=== PATIENT | male | born 1970 | race Caucasian/White ===

== ENCOUNTER → 2020-07-23 | Outpatient (CLI) | payer SELFPAY ==
[~2020-07-23] MED LIST: CEPH500C PO; TRM50T PO
--- NOTE | 2020-07-24 08:00 | NUR ---
Notified patient of his positive COVID test.
== END ==
LOC: LABNPT 08:45
PROVIDERS: ATTEND Family Medicine
DX: U07.1 COVID-19 (principal)
CPT/HCPCS: 87635

== ENCOUNTER 2021-11-24 12:05 | Outpatient (CLI) | payer BC ==
[~2021-11-24] VITALS: Ht 182.9 cm; Wt 86.2 kg
== END 2021-11-24 12:49 ==
LOC: PREOP 12:05
PROVIDERS: ATTEND Surgery
DX: Z01.818 Encounter for other preprocedural examination (principal)

== ENCOUNTER → 2021-12-02 | Day surgery (SDC) | payer BC ==
[~2021-12-02] VITALS: Ht 182 cm; Wt 86.2 kg
[~2021-12-02] MED LIST changes: +LACTATED RINGERS 1,000 ML IV STA; +LIDOCAINE JELLY 2% 6 ML SYRINGE MM PRN; +MIDAZOLAM 2 MG/2 ML (VERSED) VIAL ONE; +ONDANSETRON 4 MG (ZOFRAN) ORAL DISSOLVE TAB PO PRN; +ONDANSETRON 4 MG/2 ML (SDV) Z0FRAN IVP PRN; +PROPOFOL INJECTION 50 ML IV ONE; +proPOfol 200 MG/20 ML (DIPRIVAN) VIAL IV ONE
[2021-12-02 09:05] VITALS: BP 146/81
--- NOTE | 2021-12-02 09:55 | Discharge Inst-Surgical ---
D/C Lap Instructions-KISHORE Follow Up Activity as tolerated High Fiber Diet 25g or more per day Avoid Alcohol, Caffeine, Spicy Larson and Acid foods. Drink 64 fluid oz or more of fluids per day. Symptoms to Report: Fever over 101 degree F, Nausea/Vomiting If any problems/questions: Contact your physician or go to Emergency Room SAL NOVAK MD Dec 02, 2021 09:55
--- NOTE | 2021-12-02 09:55 | Progress Note-Pre Operative ---
Pre-Operative Progress Note H&P Reviewed The H&P was reviewed, patient examined and no changes noted. Date Seen by Provider: Dec 02, 2021 Time Seen by Provider: :30 Date H&P Reviewed: Dec 02, 2021 Time H&P Reviewed: :30 Pre-Operative Diagnosis: screening SAL Topete MD Dec 02, 2021 09:55
[2021-12-02 11:35] VITALS: BP 102/62
[2021-12-02 11:40] VITALS: BP 97/60
--- NOTE | 2021-12-02 11:44 | Progress Note-Post Operative ---
Post-Operative Progess Note Surgeon (s)/Audiovisual Technician (s) Surgeon SAL NOVAK MD Audiovisual Technician: none Pre-Operative Diagnosis screening colo Post-Operative Diagnosis mild chronic stage 2 ext and int hemorrhoids. Procedure & Operative Findings Date of Procedure 12/02/21 Procedure Performed/Findings colonoscopy Anesthesia Type mac Estimated Blood Loss Estimated blood loss (mL): minimal Specimens/Packing Specimens Removed none SAL NOVAK MD Dec 02, 2021 11:44
[2021-12-02 11:45] VITALS: BP 95/63
[2021-12-02 11:50] VITALS: BP 102/64
[2021-12-02 12:05] VITALS: BP 121/90
--- NOTE | 2021-12-02 14:32 | Anesthesia-General Post-Op ---
MAC Patient Condition Mental Status/LOC: Same as Preop Cardiovascular: Satisfactory Nausea/Vomiting: Absent Respiratory: Satisfactory Pain: Controlled Complications: Absent Post Op Complications Complications None Follow Up Care/Instructions Patient Instructions None needed. Anesthesiology Discharge Order Discharge Order Patient is doing well, no complaints, stable vital signs, no apparent adverse anesthesia problems. No complications reported per nursing. WON CABRAL CRNA Dec 02, 2021 14:32
--- NOTE | 2021-12-02 15:58 | OPERATIVE REPORT ---
DATE OF SERVICE: 12/02/2021 ATTENDING PRIMARY CARE PHYSICIAN: Prakash Ritchie DO. PREOPERATIVE DIAGNOSIS: Screening colonoscopy. POSTOPERATIVE DIAGNOSES: Mild chronic stage II external and internal hemorrhoids. PROCEDURE PERFORMED: Colonoscopy. SURGEON: Sal Novak MD ANESTHESIA: Monitored anesthesia care. ESTIMATED BLOOD LOSS: Minimal. FINDINGS: Mild chronic stage II external and internal hemorrhoids. DISPOSITION: The patient tolerated the procedure well. INDICATIONS FOR PROCEDURE: The patient is a 51-year-old male in need of a screening colonoscopy. He has not had a colonoscopy up to this point in his life. He states that he is otherwise doing well, does not report any major issues with diarrhea nor constipation as well as no red blood per rectum nor any dark tarry stools. He also does not report any family history of colon cancer. DESCRIPTION OF PROCEDURE: The patient was brought to the endoscopy suite and laid in the left lateral decubitus position. After adequate IV pain and sedative medications and monitored anesthesia care, a digital rectal examination was performed. Mild chronic stage II external and internal hemorrhoids were identified, which were not actively edematous nor inflamed and no bleeding. Normal sphincter tone was felt and there were no palpable masses. Prostate gland was palpable and appeared normal. The endoscope was then intubated and anus and rectum gently insufflated. The endoscope was then advanced through the valves of Damon of the rectum with no polyps or any neoplasms identified. Through the sigmoid colon, no diverticulosis identified. The endoscope was then advanced through the remainder of the descending, transverse and ascending colon to the cecum, which were normal. There were no polyps or any neoplasms identified throughout the colon or rectum. The endoscope was then slowly withdrawn while taking a second look and suctioning of residual air with no additional findings. The patient tolerated the procedure well. We will recommend continued medical management with a high fiber diet with at least 30 grams of fiber daily as well as significant amounts of water to promote soft stools on a daily basis and if he is asymptomatic, he does not need another colonoscopy for another 10 years. Job ID: [id number] DocumentID: [id number] Dictated Date: 12/02/2021 11:39:28 Loan Secretary Date: 12/02/2021 15:57:26 Dictated By: SAL NOVAK MD
== END ==
LOC: ENDO 08:53
PROVIDERS: ATTEND Surgery
DX: Z12.11 Encounter for screening for malignant neoplasm of colon (principal); K64.1 Second degree hemorrhoids; K64.4 Residual hemorrhoidal skin tags

== ENCOUNTER 2023-05-25 06:37 | Day surgery (SDC) | payer BC ==
--- NOTE | 2023-05-16 09:16 | HISTORY AND PHYSICAL ---
This will be for outpatient surgery on 05/25/2023 for left shoulder arthroscopy with distal clavicle excision and biceps tenotomy, open rotator cuff repair. HISTORY OF PRESENT ILLNESS: The patient is a 52-year-old right hand dominant gentleman with several-month history of progressively worsening left shoulder pain with associated popping. He reports pain with overhead activities and with lifting to the side. He reports pain over his collarbone. An MRI revealed partial thickness rotator cuff tearing with degenerative changes of the acromioclavicular joint and bicipital tendinosis. He has failed to respond to conservative measures including activity modifications, therapy and injections. Because of this, the patient has elected to proceed with surgical intervention. REVIEW OF SYSTEMS: No chest pain. No shortness of breath. No dysuria. PAST SURGICAL HISTORY: None. PAST MEDICAL HISTORY: Denies. FAMILY HISTORY: Unknown. PRIMARY CARE PROVIDER: Dr. Baugh. MEDICATIONS: None. ALLERGIES: NONE. SOCIAL HISTORY: The patient denies alcohol or tobacco use. PHYSICAL EXAMINATION: GENERAL: The patient is well-developed, well-nourished, in no acute distress. HEENT: Normocephalic, atraumatic. Pupils are equal, round, reactive to light. Oropharynx is clear. NECK: Supple. No lymphadenopathy. LUNGS: Clear to auscultation bilaterally. HEART: Regular rate and rhythm. ABDOMEN: Soft, nontender, nondistended. EXTREMITIES: The left shoulder demonstrates tenderness on his acromioclavicular joint. Active range of motion is 160 degrees of forward elevation, 60 degrees of external rotation and internal rotation to L3. He has a positive Neer sign. Pain with cross body adduction. Mildly positive Speed's maneuver. Mildly positive Evangeline's maneuver. IMPRESSION: Left shoulder rotator cuff tendinosis with bicipital tendinosis and acromioclavicular arthrosis. PLAN: Left shoulder arthroscopy, biceps tenotomy versus tenodesis with distal clavicle excision, possible rotator cuff repair. The risks, benefits, options, ramifications and recovery have been discussed at length with the patient. He understands and wishes to proceed. Job ID: [id number] DocumentID: [id number] Dictated Date: 05/09/2023 12:49:09 Repairing Calibrator Date: 05/09/2023 18:46:00 Dictated By: BERNADETTE CARRINGTON MD
[~2023-05-25] VITALS: Ht 180.3 cm; Wt 84.1 kg
[2023-05-25] VITALS (11 sets, daily range): BP systolic 124–150; BP diastolic 74–93
[~2023-05-25 06:37] MED LIST changes: -LACTATED RINGERS 1,000 ML IV STA; -LIDOCAINE JELLY 2% 6 ML SYRINGE MM PRN; -MIDAZOLAM 2 MG/2 ML (VERSED) VIAL ONE; -ONDANSETRON 4 MG (ZOFRAN) ORAL DISSOLVE TAB PO PRN; -ONDANSETRON 4 MG/2 ML (SDV) Z0FRAN IVP PRN; -PROPOFOL INJECTION 50 ML IV ONE; -proPOfol 200 MG/20 ML (DIPRIVAN) VIAL IV ONE
[2023-05-25] MEDS ORDERED: dexAMETHasone INJ 10 MG/ML 1 ML VIAL ONE (06:58)
[2023-05-25] MEDS ORDERED: LIDOCAINE PF 2% 5 ML VIAL ONE (06:58)
[2023-05-25] MEDS ORDERED: fentaNYL INJECTION 100 MCG/2 ML VIAL ONE (06:58)
[2023-05-25] MEDS ORDERED: MIDAZOLAM INJ 2 MG/2 ML VIAL ONE (06:58)
[2023-05-25] MEDS ORDERED: ONDANSETRON INJECTION 4 MG/2 ML (SDV) ONE (06:58)
[2023-05-25] MEDS ORDERED: ROCURONIUM 50 MG/5 ML VIAL IV ONE (06:58)
[2023-05-25] MEDS ORDERED: SEVOFLURANE (ULTANE) 15 ML INHAL SOLN ONE ×2 (06:58→09:55)
[2023-05-25] MEDS ORDERED: proPOfol INJECTION 200 MG/20 ML VIAL IV ONE (06:58)
[2023-05-25] MEDS ORDERED: oxyCODONE/ACETAMINOPHEN 5/325MG TABLET PO PRN (07:30)
[2023-05-25] MEDS ORDERED: NS (IVPB) 50 ML 50 ML ONE (07:32)
[2023-05-25] MEDS ORDERED: ceFAZolin INJECTION 1,000 MG ONE (07:32)
--- NOTE | 2023-05-25 07:34 | Progress Note-Pre Operative ---
Pre-Operative Progress Note Date of Available H&P: May 16, 2023 Date H&P Reviewed: May 25, 2023 Time H&P Reviewed: 07:11 Changes from last HP none Pre-Operative Diagnosis: left shoulder AC osteoarthritis and SLAP tear BERNADETTE CARRINGTON MD May 25, 2023 07:34
--- NOTE | 2023-05-25 07:35 | Progress Note-Post Operative ---
Post-Operative Progess Note Surgeon (s)/Frame Stripper (s) Surgeon BERNADETTE CARRINGTON MD Frame Stripper: Hardy Cobb Pre-Operative Diagnosis left shoulder AC osteoarthritis and SLAP tear Post-Operative Diagnosis left shoulder AC osteoarthritis and SLAP tear Procedure & Operative Findings Date of Procedure 05/25/23 Procedure Performed/Findings left shoulder arthroscopic distal clavicle excision, acromioplasty and biceps tenodesis Anesthesia Type GETA Estimated Blood Loss Estimated blood loss (mL): minimal Specimens/Packing Specimens Removed none Packing: none BERNADETTE CARRINGTON MD May 25, 2023 07:35
[2023-05-25] MEDS ORDERED: BUPIVACAINE 0.25% 30 ML VIAL ONE (07:40)
[2023-05-25] MEDS ORDERED: morphine PRESERVATIVE free 10 MG/10 ML AMP ONE (07:40)
[2023-05-25] MEDS: LACTATED RINGERS 1,000 ML 1,000 ML IV PRN ×2 (07:48→09:30)
[2023-05-25] MEDS ORDERED: ceFAZolin INJECTION 2,000 MG in NS (IVPB) 50 ML 50 ML IV ONE (08:00)
[2023-05-25] MEDS ORDERED: HYDROmorphone INJECTION 2 MG/ML VIAL ONE (09:16)
[2023-05-25] MEDS ORDERED: PHENYLEPHRINE 100 MCG/ML 10 ML (ANESTHESIA) SYR ONE (09:19)
[2023-05-25] MEDS ORDERED: SUGAMMADEX INJ 100 MG/ML 5 ML VIAL IV ONE (09:37)
[2023-05-25] MEDS ORDERED: KETOROLAC INJ 30 MG/ML VIAL ONE (09:51)
[2023-05-25] MEDS ORDERED: ceFAZolin 1 GM/NS 50 ML (SDC/OR ONLY) IV ONE ×2 (10:00)
--- NOTE | 2023-05-25 10:23 | Anesthesia-General Post-Op ---
General Patient Condition Mental Status/LOC: Same as Preop Cardiovascular: Satisfactory Nausea/Vomiting: Absent Respiratory: Satisfactory Pain: Controlled Complications: Absent Post Op Complications Complications None Follow Up Care/Instructions Patient Instructions None needed. Anesthesia/Patient Condition Patient Condition Patient is doing well, no complaints, stable vital signs, no apparent adverse anesthesia problems. No complications reported per nursing. D/C home per [facility] Criteria: Yes PEDRO BRISCOE CRNA May 25, 2023 10:23
[2023-05-25] MEDS ORDERED: HYDROmorphone INJECTION 2 MG/ML VIAL IV ONE (10:30)
[2023-05-25] MEDS: ONDANSETRON INJECTION 4 MG/2 ML (SDV) IVP PRN ×3 (11:17→12:27)
--- NOTE | 2023-05-25 18:05 | OPERATIVE REPORT ---
DATE OF SERVICE: 05/25/2023 PREOPERATIVE DIAGNOSES: 1. Left shoulder SLAP tear. 2. Left shoulder acromioclavicular osteoarthritis. POSTOPERATIVE DIAGNOSES: 1. Left shoulder SLAP tear. 2. Left shoulder acromioclavicular osteoarthritis. PROCEDURES: 1. Left shoulder biceps tenodesis. 2. Left shoulder arthroscopic distal clavicle excision. 3. Left shoulder arthroscopic acromioplasty. SURGEON: Albert Carrington MD DEPUTY HEAD: Hardy Cobb, who assisted throughout the procedure and closed the incisions. ANESTHESIA: General endotracheal by Reno Grigsby CRNA. ESTIMATED BLOOD LOSS: Minimal. DRAINS: None. COMPLICATIONS: None. POSTOPERATIVE PLAN: Sling wear and passive range of motion for 2 weeks and then progressive activities as symptoms allow. The patient was transferred to the recovery room awake and in stable condition. STATEMENT OF MEDICAL NECESSITY: The patient is a 52-year-old active gentleman with complaints of left shoulder pain, popping, catching. An MRI revealed a SLAP tear with partial thickness rotator cuff tearing and a large distal clavicle osteophyte. He tried rest, activity modifications and anti-inflammatories without relief. Due to functional impairment and failure to improve with conservative measures, the patient elected to proceed with surgical intervention. Examination under anesthesia revealed forward elevation 170 degrees, external rotation 80 degrees, internal rotation of 70 degrees. Arthroscopic findings demonstrated a type 2 SLAP tear. The rotator cuff was intact throughout with no intraarticular detachment noted. No glenoid or humeral head articular wear was noted. The remainder of the labrum was intact. The subacromial space demonstrated dense bursitis with sloping of the anterolateral acromion and prominence of the distal clavicle at the acromioclavicular joint. DESCRIPTION OF PROCEDURE: After risks and benefits of the procedure were discussed and questions were answered and informed consent signed and placed on chart, the operative site was confirmed in the preoperative holding area initialed by surgeon. The patient was then transferred to the operating room. After adequate levels of general endotracheal anesthetic were obtained, a timeout was called, confirming the operative site. Examination under anesthesia was performed with the above findings noted. The left shoulder and upper extremity were prepped and draped in the usual sterile fashion. The shoulder joint was injected with 20 mL fluid and standard posterior portal was placed. Under direct visualization, anterior portal was created in the interval between biceps, subscapularis and glenoid. The biceps anchor was released. The stump was debrided with a shaver. The scope was then redirected into the subacromial space. A lateral portal was created. Bursectomy was performed and acromion was planed to a flat type 1 acromion. A superior anterior portal was then placed and under direct visualization through the lateral portal visualization, the distal clavicle was excised from posterior to anterior and from inferior to superior. This removed approximately 8 mm of the distal clavicle. The scope was then redirected through the anterior portal to confirm adequate decompression. The wound was copiously irrigated and the port sites were closed with 4-0 nylon in simple interrupted fashion. An incision was then made just distal to the pectoralis insertion on the upper medial arm. The underlying soft tissues were carefully dissected. Long head of the biceps was identified and pulled into the wound. This was then whipstitched from the musculotendinous junction approximately 3 cm. A unicortical drill hole was then placed in the bicipital groove just distal to pectoralis insertion. These sutures were passed through the biceps button. The button was then passed into the humeral canal. The button flipped and this pulled the tendon down to the bony surface. This was then oversewn on itself. The shoulder and elbow were taken through range of motion and the repair was stable. The wound was copiously irrigated, 3-0 Vicryl was used to reapproximate subcutaneous tissue. Skin was closed with 4-0 nylon in a running alternating horizontal mattress fashion. The incisions were infiltrated with plain Marcaine. The shoulder joint was injected with Duramorph. A soft dressing and sling were applied and the patient was transferred to recovery room awake and stable condition. Job ID: [id number] DocumentID: [id number] Dictated Date: 05/25/2023 10:17:55 Data Conversion Developer Date: 05/25/2023 18:03:00 Dictated By: ALBERT CARRINGTON MD
== END 2023-05-25 13:05 ==
LOC: SDC 06:37
PROVIDERS: ATTEND Orthopaedic Surgery
DX: S43.432A Superior glenoid labrum lesion of left shoulder, initial encounter (principal); M19.012 Primary osteoarthritis, left shoulder; M25.712 Osteophyte, left shoulder
CPT/HCPCS: 23430; 29824; 29826; 87081; C1713